=== PATIENT | female | born 1940 | race Caucasian/White ===

== ENCOUNTER 2023-05-05 10:46 | Outpatient (CLI) | payer MEDICARE, OTHER, SELFPAY ==
--- NOTE | 2023-05-05 10:50 | MM_ITS ---
WS: [id number] BILATERAL SCREENING DIGITAL TOMOSYNTHESIS MAMMOGRAM WITH CAD HISTORY: SCREENING COMPARISON: 10/25/2019 and 12/26/2015 Bilateral CC and MLO views with tomosynthesis and synthetic mammography submitted. Computer aided det ection analyzed. Breast composition: There are scattered areas of fibroglandular density. No suspicious masses, microc alcifications or architectural distortion. Benign scattered calcifications within each breast. IMPRESSION: MM/[place] [id number] BI-RADS: 2-Benign FOLLOW UP: 1 Year Follow-up
== END 2023-05-05 10:47 | disposition home or self-care (01) ==
LOC: RAD 10:46
PROVIDERS: Family Provider Family Medicine; PCP Family Medicine; Visit Provider Family Medicine
DX: Z12.31 Encounter for screening mammogram for malignant neoplasm of breast (principal)
CPT/HCPCS: 77063; 77067

== ENCOUNTER 2023-12-31 10:36 | Emergency (ER) | payer MEDICARE, OTHER, SELFPAY ==
[2023-12-31 10:39] VITALS: BP 164/82; PULSE 74; RESP 18; TEMP 36.4; O2SAT 98
--- NOTE | 2023-12-31 10:46 | CT_ITS ---
WS: [id number] CT HEAD TECHNIQUE: Noncontrast CT of the head obtained from the skullbase to the vertex. CLINICAL INFORMATION: Sudden onset vertigo COMPARISON: 2010 DLP: 1085.[address] scans at [facility] use at least one of these dose optimization techniques: automated e xposure control; mA and/or kV adjustment per patient size (includes targeted exams where dose is matc hed to clinical indication); or iterative reconstruction. FINDINGS: No evidence of intracranial hemorrhage or mass effect. Ventricular system and basal cisterns are campos nt. Mild small vessel changes with moderate parenchymal volume loss. No extra-axial fluid collections . No evidence of mass or mass effect. Vascular calcification Paranasal sinuses and mastoid air cells are well aerated. .Normal visualized soft tissues. CT/CT head wo con* [id number] IMPRESSION: 1. No evidence of intracranial hemorrhage or mass effect. 2. No acute intracranial findings.
--- NOTE | 2023-12-31 10:51 | ECG_ITS ---
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 [email or web address]
--- NOTE | 2023-12-31 10:51 | ED_ITS ---
HPI - Dizziness 2 General: Chief Complaint: Dizziness Stated Complaint: very dizzy, sick to stomach Time Seen by Provider: 12/31/23 10:46 History of Present Illness: HPI Narrative: 83-year-old female who presents to the mergecty room with complaints of dizziness. It is worse when she moves her head. She has been having problems in the past with vertiginous-like symptoms she usually controls with meclizine but she has been out for the last month. No head trauma. She has no other issues. She has not any difficulty speech or swallowing no difficulty with walking or coordination. Associated symptoms: Denies chest pain or chills Related Data Home Medications Medication Instructions Recorded Confirmed amlodipine 5 mg tablet 5 mg PO QPM 12/31/23 12/31/23 buspirone 15 mg tablet 7.5 mg PO TID 12/31/23 12/31/23 enalapril maleate 10 mg tablet 10 mg PO QAM 12/31/23 12/31/23 gabapentin 100 mg capsule 100 mg PO TID 12/31/23 12/31/23 hydrochlorothiazide 25 mg tablet 25 mg PO QAM 12/31/23 12/31/23 ketoconazole 2 % topical cream 1 applic topical BID PRN Rash 12/31/23 12/31/23 potassium chloride 20 mEq 20 meq PO DAILY 12/31/23 12/31/23 tablet,extended release Previous Rx's Medication Instructions Recorded meclizine 25 mg tablet 25 mg PO QID PRN dizziness #20 tabs 12/31/23 Review of Systems 2 Const: Denies: fever(s) or chills Card: Denies: chest pain Resp: Denies: dyspnea GI: Denies: abdominal pain : Denies: dysuria, urinary frequency or urinary urgency Musc: Denies: neck pain or back pain Skin/Breast: Denies: rash Physical Exam 2 Const: COMMON NORMALS: no acute distress GENERAL APPEARANCE: cooperative and comfortable ORIENTATION/CONSCIOUSNESS: Yes awake, Yes oriented to person, Yes oriented to place and Yes oriented to time HENMT: COMMON NORMALS: normocephalic, atraumatic and hearing grossly normal bilaterally HEAD & SCALP: normocephalic and atraumatic Resp: COMMON NORMALS: normal respiratory effort, No retractions, No use of accessory muscles and clear to auscultation bilaterally AUSCULTATION: clear to auscultation bilaterally Cardio: COMMON NORMALS: regular rate, regular rhythm and No murmurs present (Cardio) RATE: regular rate RHYTHM: regular rhythm GI: COMMON NORMALS: Soft to palpation and No hepatosplenomegaly present A USCULTATION: Yes normoactive bowel sounds PALPATION: Yes Soft to palpation, No Tenderness to palpation present (GI), No Guarding due to palpation present (GI) and Yes No hepatosplenomegaly present Extremity: COMMON NORMALS: normal to inspection, capillary refill normal, no clubbing, cyanosis or edema, no calf tenderness and no pedal edema Neuro: SENSORIUM/ORIENTATION: Yes oriented to person, Yes oriented to place and Yes oriented to time Skin: COMMON NORMALS: no rashes or lesions noted GENERAL SKIN EXAM: no rashes or lesions noted Course 2 Vital Signs: Vital signs: Vital Signs Temperature 97.6 F 12/31/23 10:39 Pulse Rate 89 12/31/23 13:02 Respiratory Rate 18 12/31/23 10:39 Blood Pressure 119/92 12/31/23 13:02 Pulse Oximetry 96 12/31/23 13:02 Oxygen Delivery Me thod Room Air 12/31/23 10:39 MDM - Dizziness Medical Decision Making Improved after Ativan. Will refill her meclizine to use as needed it is reproducible with movement of the head. She has no ataxia with standing. No sign of posterior stroke at this time. Medical Records I reviewed the patient's medical records. Lab Data I reviewed the patient's lab results. 12/31/23 10:57 12/31/23 10:[address] 12/31/23 10:46 IMPRESSION: 1. No evidence of intracranial hemorrhage or mass effect. 2. No acute intracranial findings. Laboratory Results WBC 8.70 10^3/uL (3.29-11.43) 12/31/23 10:57 RBC 4.57 10^6/uL (3.85-5.65) 12/31/23 10:57 Hgb 13.90 g/dL (11.27-16.99) 12/31/23 10:57 Hct 41.4 % (36-47) 12/31/23 10:57 MCV 90.6 fl (85-98) 12/31/23 10:57 MCH 30.4 pg (27-33) 12/31/23 10:57 MCHC 33.6 g/dL (30-55) 12/31/23 10:57 RDW 12.5 % (12.1-15.1) 12/31/23 10:57 Plt Count 225 10^3/cmm (157-399) 12/31/23 10:57 MPV 8.8 fL (7.4-10.4) 12/31/23 10:57 Neut % (Auto) 73.8 % 12/31/23 10:57 Lymph % (Auto) 17.5 % 12/31/23 10:57 [place] % (Auto) 7.4 % 12/31/23 10:57 Eos % (Auto) 0.9 % 12/31/23 10:57 Baso % (Auto) 0.2 % 12/31/23 10:57 Neut # (Auto) 6.42 10^3/uL (1.8-7.7) 12/31/23 10:57 Lymph # (Auto) 1.5 10^3/uL (0.8-4.8) 12/31/23 10:57 [place] # (Auto) 0.6 10^3/uL (0.2-0.9) 12/31/23 10:57 Eos # (Auto) 0.1 10^3/uL (0.0-0.8) 12/31/23 10:57 Baso # (Auto) 0.0 10^3/uL (0.0-0.1) 12/31/23 10:57 Nucleated RBC % (auto) 0 % 12/31/23 10:57 Nucleated RBCs # 0.0 /100WBC 12/31/23 10:57 Sodium 132 mmol/L (136-145) L 12/31/23 10:57 Potassium 3.5 mmol/L (3.5-5.1) 12/31/23 10:57 Chloride 91 mmol/L (98-107) L 12/31/23 10:57 Carbon Dioxide 29 mmol/L (22-29) 12/31/23 10:57 Anion Gap 15.5 (5-19) 12/31/23 10:57 BUN 14 mg/dL (8-23) 12/31/23 10:57 Creatinine 0.8 mg/dL (0.5-0.9) 12/31/23 10:57 GFR Calculation Not Reportable 12/31/23 10:57 Glucose 118 mg/dL (65-115) H 12/31/23 10:57 Calculated Osmolality 276 mOsm/kg (285-295) L 12/31/23 10:57 Calcium 8.8 mg/dL (8.5-10.5) 12/31/23 10:57 Total Bilirubin 0.4 mg/dL (0.15-1.2) 12/31/23 10:57 AST 17 U/L (0-32) 12/31/23 10:57 ALT 9 U/L (0-33) 12/31/23 10:57 Alkaline Phosphatase 76 U/L (35-105) 12/31/23 10:57 Total Protein 7.3 g/dL (6.6-8.7) 12/31/23 10:57 Albumin 4.5 g/dL (3.5-5.2) 12/31/23 10:57 Globulin 2.8 g/dL (1.3-4.6) 12/31/23 10:57 All radiology interpretation(s) finalized by discharge Discharge Plan Discharge Patient Disposition: Home Clinical Impression: Benign paroxysmal positional vertigo Condition: Stable Prescriptions: New meclizine 25 mg tablet 25 mg PO QID PRN (Reason: dizziness) Qty: 20 0RF No Action enalapril maleate 10 mg tablet 10 mg PO QAM amlodipine 5 mg tablet 5 mg PO QPM hydrochlorothiazide 25 mg tablet 25 mg PO QAM gabapentin 100 mg Capsule 100 mg PO TID ketoconazole 2 % cream 1 applic TOPICAL BID PRN (Reason: Rash) buspirone 15 mg tablet 7.5 mg PO TID potassium chloride 20 mEq tablet extended release 20 meq PO DAILY Discharge Orders: Discharge ED (Routine); Ordered 12/31/23 Ordered By: Ruddy Sarah Referrals: Liliana Hussein MD [Primary Care Provider] - Ruddy Sarah DO [Emergency Provider] - Discharge Diet: Usual diet Discharge Activity: Resume usual activity Patient Instructions: Opioid Safety, Pain Management Activity Restrictions/Additional Instructions: Thank you for choosing [facility] for your healthcare needs today. It is very important that you follow up as instructed or that you return to the Emergency Department should you have concerns or if your condition changes or worsens in any way. You are seen today for positional vertigo. Will discharge you home with meclizine to use as needed. Recommend you follow-up with your primary care provider soon as possible. Coding Level of Care Code ED Cotton Presser for Radha Matute
[2023-12-31 11:03] LABS: Basophils % 0.2 %; Eosinophils # 0.1 10^3/uL (0.0-0.8); Eosinophils % 0.9 %; Hematocrit 41.4 % (36-47); Lymphocytes # 1.5 10^3/uL (0.8-4.8); Lymphocytes % 17.5 %; Mean Corpuscular HGB Conc 33.6 g/dL (30-55); Mean Corpuscular Hemoglobin 30.4 pg (27-33); Mean Corpuscular Volume 90.6 fl (85-98); Mean Platelet Volume 8.8 fL (7.4-10.4); Monocytes # 0.6 10^3/uL (0.2-0.9); Monocytes % 7.4 %; Neutrophils # 6.42 10^3/uL (1.8-7.7); Neutrophils % 73.8 %; Nucleated Red Blood Cells % 0 %; Platelet Count 225 10^3/cmm (157-399); Red Blood Count 4.57 10^6/uL (3.85-5.65); Red Cell Distribution Width 12.5 % (12.1-15.1)
[2023-12-31] MEDS: LORazepam 2 mg/mL INJ 1 mL 1 MG IVP (11:06)
[2023-12-31 11:23] LABS: Alanine Aminotransferase 9 U/L (0-33); Albumin Level 4.5 g/dL (3.5-5.2); Alkaline Phosphatase 76 U/L (35-105); Anion Gap 15.5 (5-19); Aspartate Amino Transferase 17 U/L (0-32); Blood Urea Nitrogen 14 mg/dL (8-23); Calcium 8.8 mg/dL (8.5-10.5); Carbon Dioxide 29 mmol/L (22-29); Chloride 91 mmol/L (98-107); Globulin 2.8 g/dL (1.3-4.6); Glucose 118 mg/dL (65-115); Osmolality Calculated 276 mOsm/kg (285-295); Potassium 3.5 mmol/L (3.5-5.1); Sodium 132 mmol/L (136-145); Total Bilirubin 0.4 mg/dL (0.15-1.2); Total Protein 7.3 g/dL (6.6-8.7)
[2023-12-31 12:42] VITALS: BP 119/92; PULSE 86; O2SAT 96
[2023-12-31 13:02] VITALS: BP 119/92; PULSE 89; O2SAT 96
== END 2023-12-31 13:05 | disposition home or self-care (01) ==
PROVIDERS: Emergency Provider Family Medicine; PCP Family Medicine
DX: H81.10 Benign paroxysmal vertigo, unspecified ear (principal)
CPT/HCPCS: 70450; 80053; 85025; 93005; 96374; 99285; J2060

== ENCOUNTER 2024-05-08 10:24 | Outpatient (CLI) | payer MEDICARE, OTHER, SELFPAY ==
--- NOTE | 2024-05-08 10:33 | MM_ITS ---
WS: [id number] BILATERAL SCREENING DIGITAL TOMOSYNTHESIS MAMMOGRAM WITH CAD HISTORY: SCREEN COMPARISON: 10/24/2021, 05/05/2023, 12/26/2015 Bilateral CC and MLO views with tomosynthesis and synthetic mammography submitted. Computer aided detection analyzed. Breast composition: The breasts are heterogeneously dense, which may obscure small masses. No suspicious masses, microcalcifications or architectural distortion. Benign calcifications in each breast. There is a lobulated 8 mm mass in the central RIGHT breast seen best on the CC projection with small ca lcifications. This mass is better visualized today but also was probably present on prior studies. MM/MM scr tomosynthesis [id number] IMPRESSION: BI-RADS: 2 - Benign FOLLOW UP: 1 Year Follow-up
== END 2024-05-08 10:25 | disposition home or self-care (01) ==
LOC: RAD 10:27
PROVIDERS: PCP Family Medicine; Visit Provider Family Medicine
DX: Z12.31 Encounter for screening mammogram for malignant neoplasm of breast (principal); R92.333 Mammographic heterogeneous density, bilateral breasts; R92.1 Mammographic calcification found on diagnostic imaging of breast; N63.10 Unspecified lump in the right breast, unspecified quadrant
CPT/HCPCS: 77063; 77067

== ENCOUNTER → 2024-07-21 13:48 | Outpatient (BNVA) | payer MEDICARE, OTHER, SELFPAY | PROVIDERS: PCP Family Medicine; Visit Provider Nurse Practitioner | DX: N39.0 Urinary tract infection, site not specified (principal) | CPT/HCPCS: 81000; 87086 ==